=== PATIENT | male | born 1985 | race African-American/Black ===

== ENCOUNTER 2021-05-04 14:19 | Emergency (ER) | payer OTHER ==
[2021-05-04 14:36] VITALS: BP 97/65; PULSE 64; RESP 18; TEMP 98
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
== END 2021-05-04 16:00 | disposition left against medical advice (07) ==
LOC: EC 14:19
DX: R41.3 Other amnesia (principal); R20.0 Anesthesia of skin; M25.531 Pain in right wrist; F17.200 Nicotine dependence, unspecified, uncomplicated
CPT/HCPCS: 99283